=== PATIENT | female | born 1955 | race Caucasian/White ===

== ENCOUNTER 2016-09-19 05:32 | Inpatient (IN) | payer OTHER ==
[2016-09-19] MEDS ORDERED: fentaNYL 25 MCG/HR Transdermal Patch TRDERM SCH (06:00)
[2016-09-19] MEDS ORDERED: Dextrose 5%-Lactated Ringers 1,000 ML IV SCH (06:00)
[2016-09-19] MEDS ORDERED: Bupivacaine 0.5%/EPINEPHrine 1:200,000 50 ML MDV ONE (06:56)
[2016-09-19] MEDS ORDERED: Meropenem 500 MG SDV ONE (06:56)
[2016-09-19] MEDS ORDERED: Propofol 200 MG/20 ML SDV ONE (07:34)
[2016-09-19] MEDS ORDERED: fentaNYL 250 MCG/5 ML SDV ONE ×2 (07:34→08:38)
[2016-09-19] MEDS ORDERED: Succinylcholine/Normal Saline 200 MG/10 ML Syringe ONE (07:34)
[2016-09-19] MEDS ORDERED: Ondansetron 4 MG/2 ML SDV ONE (07:34)
[2016-09-19] MEDS ORDERED: Rocuronium 50 MG/5 ML Vial ONE ×2 (07:34→08:47)
[2016-09-19] MEDS ORDERED: Neostigmine Methylsulfate 1 MG/ML 5 ML Syringe ONE (07:34)
[2016-09-19] MEDS ORDERED: Dexamethasone 4 MG/ML SDV ONE (07:34)
[2016-09-19] MEDS ORDERED: Midazolam 1 MG/ML 2 ML SDV ONE (07:35)
[2016-09-19] MEDS ORDERED: Ketamine 500 MG/5 ML MDV IV SCH ×2 (08:00)
[2016-09-19] MEDS ORDERED: Lidocaine 2% 100 MG/5 ML Syringe IVPUSH ONE ×2 (08:00)
[2016-09-19] MEDS ORDERED: Ropivacaine 45 ML, Dexamethasone 8 MG, EPINEPHrine 0.4 MG, Sodium Chloride 0.9% 32.6 ML NERVRT SCH ×4 (08:00)
[2016-09-19] MEDS ORDERED: HYDROmorphone/Normal Saline 15 MG/30 ML PCA IV PRN (08:29)
[2016-09-19] MEDS ORDERED: Naloxone 0.4 MG/ML SDV IVPUSH PRN (08:29)
[2016-09-19] MEDS ORDERED: Lactated Ringers 1,000 ML ONE (08:34)
[2016-09-19] MEDS: cefOXitin 2 GM in Sodium Chloride 0.9% 50 ML IV ONE ×2 (08:38→10:35)
[2016-09-19] MEDS ORDERED: Acetaminophen 1,000 MG in Premix Bag 1 BAG IV ONE (10:15)
[2016-09-19] MEDS ORDERED: Scopolamine 1.5 MG Transdermal Patch ONE (10:22)
[2016-09-19] MEDS ORDERED: HYDROmorphone 1 MG/ML Syringe IVPUSH ONE (10:24)
[2016-09-19] MEDS ORDERED: Ondansetron 4 MG/2 ML SDV IVPUSH ONE (10:30)
[2016-09-19] MEDS ORDERED: Metoclopramide 10 MG/2 ML SDV IVPUSH ONE (10:42)
[2016-09-19] MEDS ORDERED: SCOPOLAMINE PATCH ASK TOP SCH (11:47)
[2016-09-19] MEDS ORDERED: Labetalol 20 MG/4 ML Syringe IVPUSH PRN (11:47)
[2016-09-19] MEDS ORDERED: hydrOXYzine HCl 50 MG/ML SDV IM PRN (11:47)
[2016-09-19] MEDS ORDERED: diphenhydrAMINE 50 MG/ML SDV IVPUSH PRN (12:00)
[2016-09-19] MEDS: Pantoprazole 40 MG Vial IVPUSH SCH (14:19)
[2016-09-19] MEDS: cefOXitin 2 GM in Sodium Chloride 0.9% 50 ML IV SCH ×2 (14:20→20:33)
[2016-09-19] MEDS: Ondansetron 4 MG/2 ML SDV IVPUSH PRN ×2 (14:22→18:38)
[2016-09-19] MEDS: Celecoxib 200 MG Cap PO SCH (14:36)
[2016-09-19] MEDS: Lidocaine 0.4%/D5W 2 GM/500 ML BAG IV SCH (14:36)
[2016-09-19] MEDS: Gabapentin 250 MG/5 ML Solution ML 470 ML Bottle PO SCH ×2 (14:36→20:33)
[2016-09-19] MEDS ORDERED: MVI, Adult with Vitamin K 10 ML, Thiamine 200 MG, Chromium/Copper/Mang/Selen/Zn 1 ML in... IV SCH ×4 (16:00)
[2016-09-19] MEDS: Metoclopramide 10 MG/2 ML SDV IVPUSH PRN (16:16)
[2016-09-19] MEDS: Acetaminophen 325 MG Tab PO SCH ×2 (16:16→21:40)
[2016-09-19] MEDS: Heparin Sodium 5,000 Units/ML Vial SUBCUT SCH (17:53)
[2016-09-19] MEDS: Dextrose 5%-Lactated Ringers 1,000 ML IV SCH (21:54)
[2016-09-20] MEDS: Lidocaine 0.4%/D5W 2 GM/500 ML BAG IV SCH (00:10)
[2016-09-20] MEDS: Celecoxib 200 MG Cap PO SCH ×2 (02:00→07:41)
[2016-09-20] MEDS: cefOXitin 2 GM in Sodium Chloride 0.9% 50 ML IV SCH ×4 (03:59→20:33)
[2016-09-20] MEDS: Acetaminophen 325 MG Tab PO SCH ×4 (04:02→21:23)
[2016-09-20] MEDS ORDERED: Iohexol 647 MG/ML 50 ML SDV PO SCH (04:15)
[2016-09-20] MEDS: Dextrose 5%-Lactated Ringers 1,000 ML IV SCH ×2 (04:16→11:06)
[2016-09-20] MEDS: Heparin Sodium 5,000 Units/ML Vial SUBCUT SCH ×2 (06:05→18:25)
[2016-09-20] MEDS ORDERED: traZODone 50 MG Tab PO PRN (07:05)
[2016-09-20] MEDS ORDERED: Cyclobenzaprine 10 MG Tab PO PRN (07:05)
--- NOTE | 2016-09-20 07:59 | PN ---
DATE OF SERVICE: 09/20/2016 SUBJECTIVE: Danyelle is postop day #1, her upper GI was normal. Her pain has been controlled. She does report dizziness, which is thought to be secondary to gabapentin. She has no other concerns or questions today. OBJECTIVE: GENERAL: Danyelle Segura is a 61-year-old female. She is alert and orientated, color flushed. VITAL SIGNS: TPR 98.6, 69, 18, blood pressure 122/53. HEENT: Negative. NECK: Supple. HEART: Regular rate and rhythm. LUNGS: Clear. ABDOMEN: Dressings have saturated through her abdominal binder and gown on the left upper quadrant at site of DAVID drain. DAVID put out 270 of a light pink serous drainage. EXTREMITIES: SCDs are on and there is no peripheral edema. ASSESSMENT: Diagnostic laparoscopy with partial gastrectomy with Deisi-en-Y gastrojejunostomy, and small bowel resection for partial small bowel obstruction with marked dilatation of gastric pouch with returned ingested oral contents, distended partially obstructed small bowel biliopancreatic limb stump. PLAN: 1. Step-2 gastric bypass diet without cereal. 2. Decrease IV to 100 mL per hour. 3. Discontinue ACCOUNT ANALYST. 4. Dilaudid 2 mg 1 to 2 every 4 hours p.r.n. pain. 5. Discontinue gabapentin. 6. Dressing off, may shower. 7. Good pulmonary toilet encouraged. 8. We will evaluate p.r.n. or in a.m. 9. Home medications were restarted. Temitope Mahoney PA-C /[id number]
[2016-09-20] MEDS: Ketotifen 0.025% Ophth Soln 5 ML Bottle EYEBOTH SCH ×2 (09:27→09:33)
[2016-09-20] MEDS: SCOPOLAMINE PATCH CHECK TOP SCH (09:27)
[2016-09-20] MEDS: Lisinopril 10 MG Tab PO SCH (09:28)
[2016-09-20] MEDS: cycloSPORINE Ophth Drops U/D Box of 30 EYEBOTH SCH ×2 (09:29→20:38)
[2016-09-20] MEDS: Trospium 20 MG Tab PO SCH ×4 (09:30→20:36)
--- NOTE | 2016-09-20 09:55 | CR ---
Limited upper GI The patient is status post Deisi-en-Y gastric bypass. There are left upper quadrant drains in place. There is no extravasation of contrast. The gastric pouch empties readily into a nondilated Deisi limb . No complications are evident. Impression: 1. Status post Deisi-en-Y gastric bypass without evidence for complication.
[2016-09-20] MEDS: Pantoprazole 40 MG Vial IVPUSH SCH (11:07)
[2016-09-20] MEDS: HYDROmorphone 2 MG Tab PO PRN ×2 (15:48→20:44)
[2016-09-20] MEDS: Metoclopramide 10 MG/2 ML SDV IVPUSH PRN (15:48)
[2016-09-20] MEDS: MVI, Adult with Vitamin K 10 ML, Thiamine 200 MG, Chromium/Copper/Mang/Selen/Zn 1 ML in... IV SCH ×4 (18:25)
[2016-09-21] MEDS: HYDROmorphone 2 MG Tab PO PRN ×2 (01:16→21:38)
[2016-09-21] MEDS: cefOXitin 2 GM in Sodium Chloride 0.9% 50 ML IV SCH ×2 (01:16→08:26)
[2016-09-21] MEDS: Acetaminophen 325 MG Tab PO SCH ×4 (03:21→21:39)
[2016-09-21] MEDS: Heparin Sodium 5,000 Units/ML Vial SUBCUT SCH ×2 (05:17→17:40)
[2016-09-21] MEDS: Dextrose 5%-Lactated Ringers 1,000 ML IV SCH (05:26)
[2016-09-21] MEDS: Celecoxib 200 MG Cap PO SCH (08:27)
[2016-09-21] MEDS: Ketotifen 0.025% Ophth Soln 5 ML Bottle EYEBOTH SCH (08:27)
[2016-09-21] MEDS: Lisinopril 10 MG Tab PO SCH (08:28)
[2016-09-21] MEDS: SCOPOLAMINE PATCH CHECK TOP SCH (08:28)
--- NOTE | 2016-09-21 08:28 | PN ---
DATE OF SERVICE: 09/21/2016 SUBJECTIVE: Danyelle had an oral intake of 1570. She is less dizzy. Her pain is controlled. She has been up ambulating. REVIEW OF SYSTEMS: Remainder of review of systems was negative for any pertinent positives and negatives. OBJECTIVE: GENERAL: Danyelle Segura is a 61-year-old female. She is alert and orientated. She had a temp max of 100. VITAL SIGNS: Her current TPR is 99, 92, 16, blood pressure 138/71. HEENT: Negative. NECK: Supple. HEART: Regular rate and rhythm. LUNGS: Clear. ABDOMEN: Dressings dry and intact. Abdominal binder is on. DAVID drain put out 70 mL of a light pink serous drainage. EXTREMITIES: SCDs are on and no peripheral edema. ASSESSMENT: Diagnostic laparoscopy with partial gastrectomy with Deisi-en-Y gastrojejunostomy, small bowel resection for partial small bowel obstruction with marked dilatation of gastric pouch with returned ingested oral contents, distended and partially obstructed small bowel, biliopancreatic limb stump. Date of surgery is 09/19/2016. PLAN: 1. Acapella 10 times every hour while awake. 2. Dressing off and may shower. 3. Continue good pulmonary toilet. 4. We will plan on discharge in a.m. Temitope Mahoney PA-C /[id number]
[2016-09-21] MEDS: cycloSPORINE Ophth Drops U/D Box of 30 EYEBOTH SCH ×2 (08:29→21:40)
[2016-09-21] MEDS: Trospium 20 MG Tab PO SCH ×2 (08:29→21:39)
[2016-09-21] MEDS ORDERED: Cyanocobalamin (Vitamin B12) 1,000 MCG/ML SDV IM ONE (09:00)
[2016-09-21] MEDS: Pantoprazole 40 MG Tab.CR PO SCH (10:41)
[2016-09-21] MEDS: MVI, Adult with Vitamin K 10 ML, Thiamine 200 MG, Chromium/Copper/Mang/Selen/Zn 1 ML in... IV SCH ×4 (15:58)
[2016-09-22] MEDS: Acetaminophen 325 MG Tab PO SCH ×2 (04:25→09:22)
[2016-09-22] MEDS: Heparin Sodium 5,000 Units/ML Vial SUBCUT SCH (06:02)
[2016-09-22] MEDS: HYDROmorphone 2 MG Tab PO PRN (07:22)
[2016-09-22] MEDS: Pantoprazole 40 MG Tab.CR PO SCH (07:23)
[2016-09-22 07:40] VITALS: BP 134/83
[2016-09-22] MEDS: Celecoxib 200 MG Cap PO SCH (09:22)
[2016-09-22] MEDS: Trospium 20 MG Tab PO SCH (09:22)
[2016-09-22] MEDS: Lisinopril 10 MG Tab PO SCH (09:23)
[2016-09-22] MEDS: Ketotifen 0.025% Ophth Soln 5 ML Bottle EYEBOTH SCH (09:23)
[2016-09-22] MEDS: SCOPOLAMINE PATCH CHECK TOP SCH (09:23)
[2016-09-22] MEDS: cycloSPORINE Ophth Drops U/D Box of 30 EYEBOTH SCH (09:24)
--- NOTE | 2016-09-23 14:32 | DISCH ---
ADMISSION DIAGNOSES: Partial small bowel obstruction with marked dilatation of gastric pouch, SP Deisi-en-Y gastric bypass surgery, unspecified surgical malabsorption, B12 deficiency, back pain, generalized muscle cramps, diverticulosis, dysuria, hypertension, insufficient sleep syndrome, odynophagia, renal cell carcinoma, urinary frequency. DISCHARGE DIAGNOSES: Diagnostic laparoscopy with partial gastrectomy with Deisi-en-Y gastrojejunostomy, small bowel resection for partial small bowel obstruction with marked dilatation of gastric pouch with retained ingested oral contents, distended and partially obstructive small bowel, biliopancreatic limb stump, date of surgery 09/19/2016. HISTORY: Danyelle Segura is a 61-year-old female who was having mid-epigastric abdominal pain with regurgitation of food contents. After preoperative evaluation and discussion of possible risks and possible complications, she wished to proceed with surgical procedure. HOSPITAL COURSE: Danyelle had her surgery on 09/19/2016. She had no operative complications. On postop day #1, she was started on a step-1 gastric bypass diet. On postop day #2, she was advanced to a step-2 gastric bypass diet without cereal. She was changed to oral pain medication. Her activity was good. On postop day #3, she was able to be discharged to home without any complications. PHYSICAL EXAMINATION: GENERAL: Danyelle Segura is a 61-year-old female. VITAL SIGNS: Height 5 feet 3 inches, weight is 197 pounds. TPR is 97.8, 77, 16. Blood pressure 134/83. HEENT: Negative. NECK: Supple. HEART: Regular rate and rhythm. LUNGS: Clear. ABDOMEN: Sutures in place, 4 x 4 over DAVID drain sites. Abdominal binder is on. EXTREMITIES: Without peripheral edema. DISPOSITION: Discharged to home. CONDITION: Stable and improving. FOLLOWUP APPOINTMENT: With Temitope Mahoney PA-C, on 09/29/2016 at 10:00 a.m. HOME MEDICATIONS: Tylenol 650 mg q.6 hours p.r.n. lesser pain, Celebrex 200 mg p.o. daily #14, 3 Dilaudid 2 mg 1 to 2 every 4 hours p.r.n. pain #50, she is to take multivitamin chewable complete b.i.d., vitamin B12 sublingual 25 mcg daily, lisinopril 10 mg oral daily, Opcon-A eye drops one drop ophthalmic daily, potassium 99 mg oral daily, VESIcare 5 mg oral daily, Restasis one drop in each eye twice daily, and trazodone 50 mg oral at bedtime. She is to discontinue taking her calcium citrate and magnesium until first postop appointment. DISCHARGE DIET: Step-2 gastric bypass diet with no cereal for 2 weeks. Drink 8 to 10 glasses of water a day. ACTIVITY: As tolerated. No lifting greater than 10 pounds for 2 weeks[address]riving, do not drive on pain medication. May shower. Notify provider if any fever, increased pain, swelling, redness, nausea, or vomiting. Wound incision care, keep site clean and dry, wear abdominal binder for 2 weeks and then as tolerated. Special discharge instruction is use incentive spirometer 10 times every hour while awake for 2 weeks.
--- NOTE | 2016-09-27 13:24 | OR ---
DATE OF PROCEDURE: 09/19/2016 PREOPERATIVE DIAGNOSIS: Partial small bowel obstruction. POSTOPERATIVE DIAGNOSES: Partial small bowel obstruction associated with: 1. Narrowing of the proximal Deisi limb with resultant marked dilation of adjacent gastric pouch with a large amount of retained gastric and orally ingested contents. 2. Distended, partially obstructed small bowel biliopancreatic limb stump. OPERATIVE PROCEDURE: Diagnostic laparoscopy with: 1. Partial gastrectomy with Deisi-en-Y gastrojejunostomy (81964). 2. Small bowel resection (28639). ANESTHESIA: General. DATABASE DESIGNER: Temitope Mahoney PA-C. INDICATION FOR PROCEDURE: This is a 61-year-old female status post previous Deisi-en-Y gastric bypass, presenting with symptoms suggestive of a partial small bowel obstruction. She did get some crampy abdominal pain after eating. Recent endoscopy also showed a large amount of retained food within her gastric pouch and there was marked dilation of the pouch, likely related to nearby partial small bowel obstruction. Plan is to proceed with diagnostic laparoscopy, lysis of adhesions, and bowel and/or gastric resection as indicated. Potential risks including bleeding, infection, leaks from various GI tract closures were all reviewed, and the patient wishes to proceed. DETAILS OF THE PROCEDURE: The patient was taken to the operating room. After general endotracheal anesthesia was induced, was placed in a lithotomy position. Lane catheter was inserted and the abdomen prepped and draped. In the left lower quadrant, a transverse incision was made and peritoneal cavity entered under direct vision with an Optiview trocar and inflated to 15 mmHg pressure with CO2. Laparoscope was then reinserted. No underlying trocar insertion site injuries were seen. Actually 5 additional trocars were placed across the upper mid abdomen and a general exploration was undertaken. After initial lysis of adhesions, the findings included a markedly enlarged gastric pouch which was prolapsed well toward the left from the gastrojejunostomy. This contained some obviously boggy mass of oral ingested contents and appeared to be fairly decompensated. Just distal to the gastrojejunostomy, there was an area of tight adhesion formation with that area just more adjacent to the gastrojejunostomy chronically strictured. An additional finding further down the small bowel length included a markedly distended biliary pancreatic limb of the small bowel. At the jejunojejunostomy, this appeared to be also somewhat narrowed and chronically distended and engorged. This was felt to be best resected as well. Initially, the small bowel at the biliary pancreatic limb stump was then divided with a HERNANDO stapler. This was more or less flush with the anastomosis. The underlying mesentery was then divided with Harmonic scalpel and the specimen delivered from the field. At this point, the proximal gastric pouch was gradually dissected free from the surrounding soft tissues with a combination of Harmonic scalpel dissection as well as some staple firings. The small bowel, a few centimeters distal to the gastrojejunostomy was now noted to be widely open and involved just adjacent to that was divided with a HERNANDO stapler. The gastric resection was then accomplished with 2 firings of the HERNANDO black loads creating the gastric pouch, now much smaller in a roughly ping-pong ball-sized dimension, which should at this point function well in terms of its ability to empty whereas the previous stomach at this point appeared to be decompensated and unlikely to satisfactorily empty, which would put the patient at risk for aspiration of gastric contents and continued problems with abdominal pain. At this point that specimen was delivered from the field as well, and the anvil of a 21 mm EEA stapler was attached to [place] sump tube brought down through the mouth and taken out through a small opening in the gastric pouch, allowing the anvil likewise to be pulled down within the gastric pouch. The Deisi limb was then divided and the main body of the EEA stapler brought up several centimeters in the lumen of the small bowel, attached to the anvil, and the gastrojejunostomy thus created. Upon removal of the stapler, double donuts of the mucosa were noted within the small bowel, was closed off with a vascular staple line. Gastrojejunostomy was then reinforced with some 3-0 Vicryl seromuscular stitch along with fibrin sealant. Leak test was accomplished with injection of 120 mL of air in the gastric pouch while submerged with a cefoxitin-containing saline solution. No leaks were identified. One Asim-Hernandez drain was taken out through the left lateral trocar site and placed adjacent to the gastrojejunostomy. There were no further problems noted. At this point, the trocar was removed, peritoneal cavity inflated, and the incision closed with some 4-0 Vicryl skin stitch. Physician construction project assistant, Temitope Mahoney, played an essential role in assisting in this case, helping to retract structures as needed, position the patient as well as suturing and cutting sutures when indicated. Her presence improved patient safety and decreased operative time. Rodrigo Falcon MD /[id number]
== END 2016-09-22 10:20 | disposition home or self-care (01) | DRG 328 ==
LOC: JP.SDS 05:32 → JP.MS 05:32 → EDSTATUS 09:15 → JP.2SS 11:30
PROVIDERS: ADMIT Surgery; ATTEND Surgery
PROC: 0DB64ZZ Excision of Stomach, Percutaneous Endoscopic Approach (ICD-10-PCS; principal; 2016-09-19)
PROC: 0D164ZA Bypass Stomach to Jejunum, Percutaneous Endoscopic Approach (ICD-10-PCS; 2016-09-19)
PROC: 0DB84ZZ Excision of Small Intestine, Percutaneous Endoscopic Approach (ICD-10-PCS; 2016-09-19)
DX: K56.60 Unspecified intestinal obstruction (principal); Z87.891 Personal history of nicotine dependence; Z79.899 Other long term (current) drug therapy; I10 Essential (primary) hypertension
CPT/HCPCS: 74240; 74240-26; 88307; 88342; 94667; A9270-GY; C9113; J0131; J0171; J0694; J1100; J1170; J1644; J2001; J2185; J2250; J2405; J2704; J2765; J2795; J3010; J3411; J3420; J7030; J7042; J7050; J7120; Q9967

== ENCOUNTER 2023-11-08 09:50 | Day surgery (SDC) | payer MEDICARE, OTHER ==
[2023-11-08] MEDS: Lactated Ringers 1,000 ML IV SCH (10:25)
[2023-11-08] MEDS: Cyanocobalamin (Vitamin B12) 1,000 MCG/ML SDV IM ONE (10:44)
[2023-11-08] MEDS ORDERED: Midazolam 1 MG/ML 2 ML SDV ONE (10:46)
[2023-11-08] MEDS ORDERED: Propofol 200 MG/20 ML SDV ONE (10:46)
[2023-11-08] MEDS: MVI, Adult with Vitamin K 10 ML, Thiamine 200 MG, Zinc/Copper/Manganese/Selenium 1 ML i... IV ONE (11:35)
[2023-11-08 13:13] VITALS: PULSE 72
[2023-11-08 13:42] VITALS: BP 127/67
== END 2023-11-08 13:42 | disposition home or self-care (01) ==
LOC: JP.SDS 09:50
PROVIDERS: ATTEND Surgery
DX: K22.70 Barrett's esophagus without dysplasia (principal); K91.89 Other postprocedural complications and disorders of digestive system; I10 Essential (primary) hypertension; E11.9 Type 2 diabetes mellitus without complications; E66.9 Obesity, unspecified
CPT/HCPCS: 00731-QZ; C1726; J2250; J2704; J3411; J3420; J3490; J7120